=== PATIENT | female | born 1995 | race Caucasian/White ===

== ENCOUNTER 2018-06-01 23:16 | Emergency (ER) | payer OTHER ==
[~2018-06-01] VITALS: Ht 160 cm; Wt 85.8 kg
[2018-06-01 23:19] VITALS: Ht 160 cm; Wt 85.8 kg
[2018-06-02] MEDS ORDERED: ACETAMINOPHEN 500 MG TAB PO STA (00:14)
[2018-06-02] MEDS ORDERED: KETOROLAC 30 MG INJ IM STA (00:14)
--- NOTE | 2018-06-02 00:17 | ERD ---
ER Documentation Chief Complaint Chief Complaint HEADACHE WITH N/V X1DAY HPI Female patient who presents to emergency room with complaint of headache, vomiting, times 1 day. Patient has history of migraine headaches and this is a similar headache for her. Mild photophobia, no phonophobia, no visual disturbances. Describes throbbing across the crown of her head. She has not taken any medications to help relieve her symptoms. Denies drug use, no smoking. LMP last week. ROS All systems reviewed and are negative except as per history of present illness. Medications Home Meds Active Scripts Diphenhydramine Hcl (Benadryl) 25 Mg Cap, 25 MG PO QHS for 10 Days, #10 CAP Prov:ISI BARAJAS [employer] SITE COORDINATOR 06/02/18 Ibuprofen* (Motrin*) 600 Mg Tab, 600 MG PO Q6 for HEADACHE for 10 Days, #30 TAB Prov:ISI BARAJAS WIC SITE COORDINATOR 06/02/18 Allergies Allergies: Coded Allergies: No Known Allergy (Unverified , 10/31/11) PMhx/Soc History of Surgery: No Anesthesia Reaction: No Hx Neurological Disorder: No Hx Respiratory Disorders: No Hx Cardiac Disorders: No Hx Psychiatric Problems: No Hx Miscellaneous Medical Probl: No Hx Alcohol Use: No Hx Substance Use: No Hx Tobacco Use: No FmHx Family History: No diabetes, No coronary disease, No other Physical Exam Vitals Vital Signs Date Temp Pulse Resp B/P (MAP) Pulse Ox O2 O2 Flow FiO2 Time Delivery Rate 06/02/18 98.1 76 18 135/75 98 Room Air 01:48 (95) 06/01/18 97.4 80 20 144/92 98 23:19 (109) Physical Exam Const: No acute distress Head: Atraumatic Eyes: Normal Conjunctiva, PERRL ENT: Normal External Ears, Nose and Mouth. Neck: Full range of motion. No meningismus. Resp: Clear to auscultation bilaterally Cardio: Regular rate and rhythm, no murmurs Abd: Soft, non tender, non distended. Normal bowel sounds Skin: No petechiae or rashes Back: No midline or flank tenderness Ext: No cyanosis, or edema Neur: Awake and alert, CNII-XII intact, EOMI Psych: Normal Mood and Affect Results 24 hrs Laboratory Tests Test 06/02/18 00:37 POC Beta HCG, Qualitative NEGATIVE Current Medications Medications Dose Sig/Pam Start Time Status Last (Trade) Ordered Route PRN Stop Time Admin Dose Reason Admin Ketorolac 30 mg ONCE STAT 06/02/18 DC 06/02/18 Tromethamine IM 00:14 00:41 (Toradol) 06/02/18 00:16 Lorazepam 0.5 mg ONCE ONCE 06/02/18 DC 06/02/18 (Ativan) PO 00:30 00:41 06/02/18 00:31 1,000 mg ONCE STAT 06/02/18 DC 06/02/18 Acetaminophen PO 00:14 00:41 (Tylenol 06/02/18 00:16 Tab) Procedures/MDM This is a 22-year-old female who presents emergency room with headache which is typical for her history of migraine headaches. ED COURSE: The patient was stable throughout ED course. DIAGNOSTIC IMAGING: Not indicated. PROCEDURES: None. MEDICATIONS GIVEN: Toradol, Ativan, Tylenol Patient tolerated medication well with no adverse reactions. Patient reported improvement in pain. MDM: 01:25 HEADACHE and symptoms RESOLVED The patient was well-appearing with VSS and without neurological deficits at time of reevaluation and discharge. Clinical and diagnostic exam not suggestive of infection, intracranial process, SAH, SDH, neoplasm, meningitis, encephalitis, aneurysm, thrombus, temporal arteritis, sinusitis. The patient has been provided with instructions on self-care including use of analgesia, reducing triggers, and need for close follow-up with primary care physician within 1-2 days for reevaluation. The patient has been instructed to return immediately for worsening symptoms, change in pattern of current symptoms, or other acute problems. DISPOSITION: The patient has been discharge home to follow-up with community physician. Departure Diagnosis: Primary Impression: Headache Condition: Stable Patient Instructions: Headache, Migraine (Classical) Referrals: [facility] Additional Instructions: Thank you very much for allowing us to participate in your care. Your health and safety is our top priority at [facility]. Call your primary care doctor TOMORROW for an appointment during the next 2-4 days and bring all the information and medications prescribed. Have prescriptions filled and follow precisely the directions on the label. If the symptoms get worse and your provider is unavailable, return to the Emergency Department immediately. ISI BARAJAS NP Jun 02, 2018 00:17
[2018-06-02] MEDS ORDERED: LORAZEPAM 0.5 MG TAB PO ONE (00:30)
[2018-06-02] MEDS ORDERED: DIPH25CA6 PO (01:27)
[2018-06-02] MEDS ORDERED: IBUP-1542 PO (01:27)
[2018-06-02 01:48] VITALS: BP 135/75; PULSE 76; RESP 18
== END 2018-06-02 01:51 | disposition home or self-care (01) ==
LOC: FTE 23:16
DX: R51 Headache (principal)
CPT/HCPCS: 81025; 96372; J1885; Z7502; Z7610